=== PATIENT | female | born 1970 | race African-American/Black ===

== ENCOUNTER 2020-11-21 02:57 | Emergency (ER) | payer MEDICAID ==
[~2020-11-21] VITALS: Ht 165.1 cm; Wt 65.9 kg
[2020-11-21] MEDS ORDERED: ONDANSETRON PF 4 MG/2 ML VIAL. IVP ONE (04:00)
[2020-11-21] MEDS ORDERED: MORPHINE SULFATE 4 MG/ML DISP.SYRIN. IV ONE ×2 (04:00→06:00)
[2020-11-21] MEDS ORDERED: HYDR-2155 PO (04:04)
--- NOTE | 2020-11-21 04:04 | PHYS DOC ---
Past History Past Medical History: Diabetes, GERD, Other Additional Past Medical Histor: colorectal ca, portal htn Past Surgical History: Other Additional Past Surgical Histo: kidney tubes, ostomy bag, bands in throat Alcohol Use: Occasionally Adult General Chief Complaint Chief Complaint: LOWER EXT PAIN HPI HPI Patient is a 49-year-old female with significant past medical history of colon cancer that was treated with surgery and chemotherapy in 2011 that is now cancer free, bilateral nephrostomy tubes secondary to complications from her cancer that have been in for about a year and a colostomy bag in place secondary to her colon cancer who presents to the emergency department with a chief complaint of back pain. Patient states that she is from [place], and flew appeared to visit with her son 2 days ago. States she was doing well up until the flight. States that when she got on the airplane, she began to have right-sided back pain aroun d the nephrostomy tube in her right low back. States it started not too long after the flight. States that over the last couple of days the pain comes and goes and cannot identify any aggravating or alleviating factors. States she has been taking only ibuprofen at home and has nothing else for pain. Denies any fevers, chest pain, shortness of breath, abdominal pain, nausea, vomiting, hematuria, diarrhea or blood in the stool. States he has been otherwise eating and drinking normally over the past couple of days and eating does not appear to aggravate or alleviate pain. States her ostomy bag is making appropriate output as usual. States her urine output is approximately the same. Denies any traumas. Denies any known ill contacts. Denies any cardiac history. Denies any history of PE or DVT. Review of Systems Review of Systems Review of systems otherwise unremarkable except noted in HPI Current Medications Current Medications Current Medications Medications (Trade) Dose Ordered Sig/[facility] Start Time Stop Time Status Last Admin Dose Admin Morphine Sulfate (Morphine 4mg Syringe) 6 mg 1X ONCE 11/21/20 04:00 11/21/20 04:01 UNV Ondansetron HCl (Zofran) 4 mg 1X ONCE 11/21/20 04:00 11/21/20 04:01 UNV Physical Exam Physical Exam Constitutional: Well developed, well nourished, no acute distress, non-toxic appearance. [] HENT: Normocephalic, atraumatic, bilateral external ears normal, oropharynx moist, no oral exudates, nose normal. [] Eyes: conjunctiva normal, no discharge. [] Neck: Normal range of motion, no tenderness, Cardiovascular:Heart rate regular rhythm, no murmur [] Lungs & Thorax: Bilateral breath sounds clear to auscultation [] Abdomen: soft, no tenderness, patient has ostomy bag in place with stool, and no obvious bright red blood or black stool Skin: Warm, dry, no erythema, no rash. [] Back: Patient has bilateral nephrostomy tubes with no obvious erythema or tenderness around the sites. Urine appears light yellow and may be a little cloudy but patient stated that the color it always is Extremities: No tenderness, no cyanosis, no clubbing, ROM intact, no edema. [] Neurologic: Alert and oriented X 3, normal motor function, normal sensory function, no focal deficits noted. [] Psychologic: Affect normal, judgement normal, mood normal. [] Current Patient Data Vital Signs Vital Signs Date Time Temp Pulse Resp B/P (MAP) Pulse Ox O2 Delivery O2 Flow Rate FiO2 11/21/20 02:57 98.4 86 20 126/81 (96) 100 Room Air EKG EKG [] Radiology/Procedures Radiology/Procedures [] Heart Score C/O Chest Pain: No Risk Factors: Risk Factors: DM, Current or recent (<one month) smoker, HTN, HLP, family history of CAD, obesity. Risk Scores: Risk Factors: DM, Current or recent (<one month) smoker, HTN, HLP, family history of CAD, obesity. Course & Med Decision Making Course & Med Decision Making Patient is a 49-year-old female who presents with right-sided back pain extending from nephrostomy tube down the hip. Vital signs not concerning.. DVT Wells score of 0. PE well score of 0. PERC negative. No chest pain or shortness of breath. Discussed differential diagnosis with patient and family and appropriate work-up for these including blood work, urine and CAT scans versus conservative management for pain with waiting and watching. Patient and family opted for pain control over laboratory work-up and imaging as patient felt that given her recent activity and pain that she most likely is experiencing some musculos keletal low back pain given the recent flight. Patient tried on a dose of morphine with a p.o. challenge and some Zofran. Discussed with patient that if this did not seem to be working as well as we thought that we should probably go ahead with the entire work-up including labs, urine and scan. Patient was agreeable to this plan. On reassessment patient stated that her pain was significantly better and was appreciative. States she still felt something funny in her right flank. Recommended that we go ahead and get the CT scan of her abdomen and pelvis given her right flank pain. Patient agreed. Laboratory analysis notable for pancytopenia. CT notable for moderate to large volume ascites. Discussed all findings with family and recommended admission for therapeutic paracentesis and continued evaluation and treatment. Family grateful, verbalized understanding and agreed with plan of discharge. Dragon Disclaimer Dragon Disclaimer This electronic medical record was generated, in whole or in part, using a voice recognition dictation system. Departure Departure: Impression: Primary Impression: Back pain Additional Impressions: Abdominal distention Ascites Disposition: 01 DC HOME SELF CARE/HOMELESS Condition: GOOD Patient Instructions: Ascites, Back Pain, Adult, [id number] Additional Instructions: Please read the attached information. Please continue to take your home pain regimen and add the prescription pain medicine as needed while you are here visiting. As discussed if you begin to have any new or concerning symptoms such as but not limited to fever, chest pain, shortness of breath, abdominal pain, nausea, vomiting, blood in your urine or stool you must return to the emergency department immediately if you are still here in [place]. As soon as you get home to [place], please call your primary care physician at [facility] and set up an appointment for soon as you can to discuss your recent ED visit. Scripts Hydrocodone Bit/Acetaminophen (HYDROCODONE-APAP 5-325 ) 1 Each Tablet 1 TAB PO PRN Q6HRS PRN for PAIN for 5 Days, #20 TAB 0 Refills Prov: IVAN BETANCOURT MD 11/21/20 Problem Qualifiers IVAN BETANCOURT MD Nov 21, 2020 04:04
[2020-11-21 04:56] LABS: BASO % 1 % (0-3); EOS # 0.1 x10^3/uL (0.0-0.7); EOS % 2 % (0-3); HEMATOCRIT 24.9 % (36.0-47.0); HEMOGLOBIN 7.7 g/dL (12.0-15.5); LYMPH # 0.3 x10^3/uL (1.0-4.8); LYMPH % 12 % (24-48); MEAN CORPUSCULAR HEMOGLOBIN 23 pg (25-35); MEAN CORPUSCULAR HGB CONC 31 g/dL (31-37); MEAN CORPUSCULAR VOLUME 74 fL (79-100); MONO # 0.2 x10^3/uL (0.0-1.1); MONO % 7 % (0-9); NEUT # 1.9 x10^3uL (1.8-7.7); NEUT % 78 % (31-73); PLATELET COUNT 63 x10^3/uL (140-400); RED BLOOD COUNT 3.35 x10^6/uL (3.50-5.40); RED CELL DISTRIBUTION WIDTH 18.8 % (11.5-14.5); WHITE BLOOD COUNT 2.5 x10^3/uL (4.0-11.0)
[2020-11-21 05:03] LABS: CREATININE 0.8 mg/dL (0.6-1.0); GFR 75.9; POTASSIUM 3.6 mmol/L (3.5-5.1)
--- NOTE | 2020-11-21 05:08 | RAD ---
CT ABDOMEN+PELVIS WO INDICATION: right flank pain EXAM: Noncontrast CT of the abdomen and pelvis. Coronal and sagittal reformatted images were perform ed. PQRS compliance statement: One or more of the following individualized dose reduction techniques were utilized for this examinat ion: 1. Automated exposure control 2. Adjustment of the mA and/or kV according to patient size 3. Use of iterative reconstruction technique COMPARISON: None FINDINGS: Moderate to large abdominopelvic ascites. Lower chest: The visualized lower lungs are aerated. Small left pleural effusion. ABDOMEN: Liver: The noncontrast liver is homogeneous in attenuation. Gallbladder and biliary: Normal gallbladder without radiopaque stone. Normal caliber bile ducts. Spleen: Spleen measures 20 cm in length. Pancreas: The noncontrast pancreas is homogeneous in attenuation without peripancreatic inflammatory changes. Adrenal glands: Normal adrenal glands. Kidneys and ureters: Bilateral percutaneous nephrostomy tubes. No hydronephrosis. GI tract: The stomach is decompressed and poorly evaluated. Left lower quadrant colostomy. No dilated large or small bowel. Vascular structures: Normal caliber abdominal aorta. Lymph nodes: No lymphadenopathy in the abdomen or pelvis. PELVIS: Genitourinary system: Urinary bladder is decompressed SKELETAL STRUCTURES AND SOFT TISSUES: Degenerative changes of the spine. IMPRESSION: 1. Bilateral percutaneous nephrostomy tubes. No hydronephrosis. 2. Moderate to large abdominopelvic ascites. Small left pleural effusion. 3. Left lower quadrant colostomy. 4. Splenomegaly. Electronically signed by: Gray Trotter MD (11/21/2020 5:05 AM) [facility]
[2020-11-21] MEDS ORDERED: CIPROFLOXACIN HCL 500 MG TABLET PO ONE (05:45)
[2020-11-21 06:43] VITALS: BP 105/63
== END 2020-11-21 07:31 | disposition short-term general hospital (02) ==
LOC: ER 02:57
DX: M54.5 Low back pain (principal); R18.8 Other ascites; R41.0 Disorientation, unspecified; E11.9 Type 2 diabetes mellitus without complications; K21.9 Gastro-esophageal reflux disease without esophagitis; Z85.9 Personal history of malignant neoplasm, unspecified; Z98.890 Other specified postprocedural states
CPT/HCPCS: 36415; 74176; 80048; 85025; 96374; 96375; 96376; 99285; J2270; J2405